=== PATIENT | male | born 1945 | race Hispanic/Latino ===

== ENCOUNTER 2017-12-22 23:59 | Emergency (ER) | payer MEDICARE ==
[~2017-12-22 23:59] MED LIST: ALBU0.63 IH; ALBU8.5H8 IH; AMOX-429 PO; CARV3.12 PO; CETI10CA5 PO; ENAL2.5T PO; ESOM40CA PO; FURO20TA4 PO; GLIP1TAB5 PO; INSU3INS3 SQ; LOSA50TA37 PO; NIAC500T76 PO; OXCA300T46 PO; POTA20PA32 PO; RISP0.5T61 PO; RISP1TAB71 PO; [UNRECOGNIZED DRUG - CODE] PO
[2017-12-23 01:01] LABS: BASOPHILS % (AUTO) 0.4 % (0.0-5.0); EOSINOPHILS % (AUTO) 0.8 % (0.0-8.0); HEMATOCRIT 40.9 % (42-54); LYMPHOCYTES % (AUTO) 11.9 % (21.0-51.0); MEAN CORPUSCULAR HEMOGLOBIN 31.3 pg (27.0-33.0); MEAN CORPUSCULAR HGB CONC 34.1 g/dL (32.0-36.0); MEAN CORPUSCULAR VOLUME 91.9 fL (79-99); MONOCYTES % (AUTO) 9.3 % (3.0-13.0); NEUTROPHILS % (AUTO) 77.6 % (40.0-77.0); PLATELET COUNT (AUTO) 154 K/uL (130-400); RED BLOOD CELL COUNT(AUTO) 4.44 MIL/uL (4.50-6.20); RED CELL DISTRIBUTION WIDTH 13.5 % (11.0-15.5); WHITE BLOOD COUNT (AUTO) 11.1 K/uL (4.8-10.8)
[2017-12-23 01:16] LABS: CREATININE 0.9 mg/dL (0.5-1.5); POTASSIUM 3.9 mmol/L (3.5-5.1)
[2017-12-23 01:21] LABS: RAPID GROUP A STREP NEGATIVE (NEGATIVE)
[2017-12-23 01:21] LABS: ALBUMIN 3.6 g/dL (3.5-5.0); TOTAL PROTEIN, SERUM 7.2 g/dL (6.0-8.3)
[2017-12-24] MEDS ORDERED: ATOR20TA65 PO (00:28)
[2017-12-24] MEDS ORDERED: INSU100I24 SQ (00:28)
[2017-12-24] MEDS ORDERED: OXCA300T46 PO (00:28)
[2017-12-24] MEDS ORDERED: PRED20TA3 PO (00:28)
[2017-12-24] MEDS ORDERED: MONT10TA21 PO (00:28)
[2017-12-24] MEDS ORDERED: ALBUHFA IH (00:28)
[2017-12-24] MEDS ORDERED: RISP0.5T19 PO (00:28)
[2017-12-24] MEDS ORDERED: LEVO500T89 PO (00:28)
[2017-12-24] MEDS ORDERED: TRI115C TP (00:28)
[2017-12-24] MEDS ORDERED: FLUT16H NASAL (00:28)
[2017-12-24] MEDS ORDERED: CHOL500050 PO (00:28)
[2017-12-24] MEDS ORDERED: NYST5ORA7 PO (00:28)
== END 2017-12-23 02:00 | disposition home or self-care (01) ==
LOC: EDH 23:59
DX: J40 Bronchitis, not specified as acute or chronic (principal); J44.9 Chronic obstructive pulmonary disease, unspecified; K21.9 Gastro-esophageal reflux disease without esophagitis; E78.5 Hyperlipidemia, unspecified; I10 Essential (primary) hypertension
CPT/HCPCS: 36415; 71045; 80053; 83605; 85025; 87804; 87880; 93005

== ENCOUNTER 2021-09-21 21:08 | Observation (INO) | payer MEDICARE ==
[~2021-09-21 21:08] MED LIST changes: -ALBU8.5H8 IH; +ALBUHFA IH; -AMOX-429 PO; +ATOR20TA65 PO; -CARV3.12 PO; +CHOL500050 PO; -ENAL2.5T PO; +FLUT16H NASAL; -FURO20TA4 PO; +INSU100I24 SQ; -INSU3INS3 SQ; +LEVO500T90 PO; -LOSA50TA37 PO; +LOSA50TA64 PO; +MONT10TA21 PO; +NYST5ORA7 PO; -POTA20PA32 PO; +PRED20TA3 PO; -RISP0.5T61 PO; +RISP0.5T66 PO; +RISP1TAB68 PO; -RISP1TAB71 PO; +TRI115C TP
[2021-09-21 21:33] LABS: BASOPHILS % (AUTO) 0.4 % (0.0-5.0); EOSINOPHILS % (AUTO) 3.3 % (0.0-8.0); HEMATOCRIT 39.4 % (42-54); LYMPHOCYTES % (AUTO) 12.4 % (21.0-51.0); MEAN CORPUSCULAR HEMOGLOBIN 29.7 pg (27.0-33.0); MEAN CORPUSCULAR HGB CONC 32.2 g/dL (32.0-36.0); MEAN CORPUSCULAR VOLUME 92.1 fL (79-99); MONOCYTES % (AUTO) 7.2 % (3.0-13.0); NEUTROPHILS % (AUTO) 76.4 % (40.0-77.0); PLATELET COUNT (AUTO) 124 K/uL (130-400); RED BLOOD CELL COUNT(AUTO) 4.28 MIL/uL (4.50-6.20); RED CELL DISTRIBUTION WIDTH 13.5 % (11.0-15.5)
[2021-09-21] MEDS ORDERED: DEXTROSE 50%-WATER 50 ML DISP.SYRIN IV ONE ×2 (21:42→22:00)
[2021-09-21 21:51] LABS: CREATININE 0.5 mg/dL (0.5-1.5); POTASSIUM 3.8 mmol/L (3.5-5.1)
[2021-09-21 21:56] LABS: ALBUMIN 3.5 g/dL (3.5-5.0); BILIRUBIN,TOTAL 0.7 mg/dL (0.2-1.0); CRP QUANTITATIVE 4.4 mg/L (0.00-9.0); TOTAL PROTEIN, SERUM 5.9 g/dL (6.0-8.3)
[2021-09-21] MEDS ORDERED: GLUCAGON 1MG KIT 1 MG ML IV SCH (22:00)
[2021-09-21] MEDS ORDERED: SODIUM CL 4MEQ/ML 30ML 154 MEQ in DEXTROSE 10%-WATER 961.5 ML IV STA (22:33)
[2021-09-21] MEDS ORDERED: DEXTROSE 10%-WATER 1,000 ML IV ONE (22:36)
[2021-09-22] MEDS ORDERED: NITROGLYCERIN 0.4 MG SL TAB SL PRN (01:30)
[2021-09-22] MEDS ORDERED: ACETAMINOPHEN 325 MG TAB PO PRN (01:30)
[2021-09-22] MEDS ORDERED: ACETAMINOPHEN WITH CODEINE 1 TAB TAB PO PRN (01:30)
[2021-09-22] MEDS ORDERED: ONDANSETRON 4MG INJ IV PRN (01:30)
[2021-09-22] MEDS ORDERED: DIPHENHYDRAMINE HCL 25 MG CAPSULE PO PRN (01:30)
[2021-09-22] MEDS ORDERED: MAG/ALUM/SIMETH 30 ML UDCUP PO PRN (01:30)
[2021-09-22] MEDS ORDERED: GUAIFENESIN-DM 200/20 MG 10 ML PO PRN (01:30)
[2021-09-22] MEDS ORDERED: HYDRALAZINE 20MG/ML VIAL IV PRN (01:30)
[2021-09-22] MEDS ORDERED: LACTULOSE 20 GM/30 ML UDCUP PO PRN (01:30)
[2021-09-22 02:04] LABS: HEMOGLOBIN A1C 5.8 % (4.0-6.0)
[2021-09-22] MEDS ORDERED: PANT40TA54 PO (03:10)
[2021-09-22] MEDS ORDERED: POLYETHYLENE GLYCOL PO (03:10)
[2021-09-22] MEDS ORDERED: MELA1TAB17 PO (03:10)
[2021-09-22] MEDS ORDERED: MV-M1TAB20 PO (03:10)
[2021-09-22] MEDS ORDERED: DOCU100C33 PO (03:10)
[2021-09-22] MEDS ORDERED: MONT-39 PO (03:10)
[2021-09-22] MEDS ORDERED: RISP1TAB89 PO (03:10)
[2021-09-22] MEDS ORDERED: NIAC500T76 PO (03:10)
[2021-09-22] MEDS ORDERED: LOSA50TA64 PO (03:10)
[2021-09-22] MEDS ORDERED: LINA145C PO (03:10)
[2021-09-22] MEDS ORDERED: OXCA600T18 PO (03:10)
[2021-09-22] MEDS ORDERED: LACT10SO62 PO (03:10)
[2021-09-22] MEDS ORDERED: CETI10TA57 PO (03:10)
[2021-09-22] MEDS ORDERED: ATOR10 PO (03:10)
[2021-09-22] MEDS ORDERED: FURO20TA4 PO (03:10)
[2021-09-22] MEDS ORDERED: ENOXAPARIN SODIUM 40 MG/0.4 ML SYRINGE SQ SCH (09:00)
[2021-09-22] MEDS ORDERED: FAMOTIDINE 20MG VIAL IV SCH (09:00)
[2021-09-22 09:21] LABS: HEMATOCRIT 39.9 % (42-54); MEAN CORPUSCULAR HEMOGLOBIN 30.4 pg (27.0-33.0); MEAN CORPUSCULAR HGB CONC 33.3 g/dL (32.0-36.0); MEAN CORPUSCULAR VOLUME 91.1 fL (79-99); RED BLOOD CELL COUNT(AUTO) 4.38 MIL/uL (4.50-6.20); RED CELL DISTRIBUTION WIDTH 13.2 % (11.0-15.5); WHITE BLOOD COUNT (AUTO) 6.4 K/uL (4.8-10.8)
[2021-09-22 09:26] LABS: CREATININE 0.6 mg/dL (0.5-1.5); POTASSIUM 3.8 mmol/L (3.5-5.1)
[2021-09-22 14:55] VITALS: BP 109/61
== END 2021-09-22 14:00 | disposition home or self-care (01) ==
LOC: EDH 21:08 → EDHIP 09-22 01:26
PROVIDERS: ADMIT Internal Medicine; ATTEND Internal Medicine
DX: E11.649 Type 2 diabetes mellitus with hypoglycemia without coma (principal); E87.1 Hypo-osmolality and hyponatremia; I10 Essential (primary) hypertension; E78.5 Hyperlipidemia, unspecified; J44.9 Chronic obstructive pulmonary disease, unspecified; E78.00 Pure hypercholesterolemia, unspecified; T38.3X5A Adverse effect of insulin and oral hypoglycemic [antidiabetic] drugs, initial encounter; Z79.01 Long term (current) use of anticoagulants; Z79.899 Other long term (current) drug therapy
CPT/HCPCS: 36415 ×2; 71045; 80048; 80053; 82948 ×10; 83036; 84484; 85025; 85027; 86140; 92610; 96361; 96372; 96374; 99284; G0378 ×13; J1650; J3490 ×2; J7070; J7131